=== PATIENT | male | born 2000 | race Caucasian/White ===

== ENCOUNTER 2020-07-06 12:39 | Emergency (ER) | payer OTHER, SELFPAY ==
[2020-07-06 12:41] VITALS: PULSE 66; RESP 14; TEMP 35.9; O2SAT 98; BMI 22.9
[2020-07-06 12:47] VITALS: BP 126/79
--- NOTE | 2020-07-06 12:50 | RAD_ITS ---
STUDY: X-RAY - LEFT FOOT CLINICAL: Male, 20 years old. Injury/Pain TECHNIQUE: 3 view(s) of the foot. COMPARISON: None. FINDINGS: Normal talus, calcaneus, and tarsal bones. Normal visualized subtalar, talonavicular, calcaneocuboid, tarsal and tarsometatarsal articulations. Normal metatarsi. Normal metatarsophalangeal joint of the great toe. Normal tibial and fibular sesamoid bones. Normal interphalangeal joint of the great toe. Normal phalanges of the great toe. Normal second through fifth metatarsophalangeal joints. Normal interphalangeal joints and phalanges of the lesser toes. The soft tissue structures are unremarkable. RAD/Foot min 3 Views IMPRESSION: Normal x-ray examination of the foot. Electronically Signed: Clinton Reynaga MD at 13:17 EDT Tel , Service support ,
--- NOTE | 2020-07-06 12:50 | EDS_ITS ---
HPI History of Present Illness Chief Complaint: Lower Extremity Injury Narrative Narrative: Patient reports that he was playing lacrosse yesterday when he stepped and landed awkwardly. Jamming his left first toe and the ground. Reports he has a throbbing pain at 6 out of 10 currently and 7 out of 10 at worst. Is worsened by walking. Is not taking anything for pain. He denies any numbness or weakness. He denies any other injuries or complaints. [facility] Medical History (Updated 07/06/20 @ 13:[address] Han Sullivan MD) Asthma Home Medications albuterol 1 mcg INHALATION DAILY 07/06/20 [History Last Taken Unknown] ciclesonide [Alvesco] 1 puff INHALATION DAILY 07/06/20 [History Last Taken Unknown] montelukast 10 mg PO DAILY 07/06/20 [History Last Taken Unknown] sertraline 50 mg PO DAILY 07/06/20 [History Last Taken Unknown] Allergy/AdvReac Type Severity Reaction Status Date / Time No Known Allergies Allergy Verified 07/06/20 12:40 Social History Smoking Status: Never smoker ROS ROS ED Constitutional Constitutional ED: Denies chills, fever(s) or sweats Eyes Eyes: Denies change in vision ENT ENT ED: Denies sore throat Cardiovascular Cardiovascular: Denies chest pain Respiratory/Chest Respiratory/Chest: Denies cough, dyspnea or dyspnea on exertion Gastrointestinal Gastrointestinal: Denies abdominal pain, diarrhea, melena, nausea or vomiting Genitourinary Genitourinary ED: Denies dysuria or urinary frequency Musculoskeletal Musculoskeletal: Denies myalgias Integumentary Denies rash Neurologic Neurologic: Denies headache(s), paresthesias or weakness EXAM Physical Exam Const Vital Signs: 07/06/20 12:41 07/06/20 12:47 Temperature 96.7 F L Temperature Source Temporal Pulse Rate 66 Respiratory Rate 14 Blood Pressure 126/79 H Blood Pressure Mean 94 Pulse Ox 98 Oxygen Delivery Method Room Air Positive well nourished and well developed General Appearance ED: well developed HEENT Reports normocephalic and head/scalp atraumatic Eyes PERRL Neck no lymphadenopathy, supple and no JVD General: Negative for tenderness Resp normal respiratory effort and clear to auscultation bilaterally Cardio regular rate, regular rhythm and no murmurs GI normal to inspection, nondistended, normoactive bowel sounds and non-tender GI Narrative: No guarding, rebound, or peritoneal signs. Palpation: soft Back/Spine Back/Spine Narrative: Nontender. Extremity Extremity Narrative: Contusion, soft tissue swelling, and moderate tenderness palpation over the distal portion of his left first metatarsal and first toe. He is a 2+ dorsalis pedis pulse. Normal sensation light touch. General Extremety ED: Negative for edema or tenderness General Extremity: Negative for edema Neuro oriented x3, CN's II-XII intact bilaterally and no sensory deficits noted Sensorium / Orientation: alert Motor Exam: strength 5/5 throughout Psych mental status grossly normal Skin no rashes or lesions noted MDM MDM Radiography X-Ray: Read by ED Physician, Read by Radiologist, Normal, No Fracture and - (Left foot x-ray shows no acute disease.) Diagnostic Testing: Radiology Impression Foot X-Ray 07/06/20 12:50 IMPRESSION: Normal x-ray examination of the foot. Electronically Signed: Clinton Reynaga MD at 13:17 EDT Tel , Service support , Treatment and Re-Evaluation Comments:: Emergency department course: Patient was treated with ibuprofen. He is resting comfortably. Treatment plan: Patient did not want crutches, postop shoe, or a walking boot. He will be discharged instructions follow-up Dr. Machuca in 1 week if not improving. He is instructed on symptomatic care. Ice, elevate, Tylenol and/or ibuprofen for pain. Discharge Plan Triage Chief Complaint: Lower Extremity Injury ED Provider: Han Sullivan Dx/Rx/DC Orders Clinical Impression: Contusion of toe of left foot Instructions: ED Foot Contusion Prescriptions: No Action montelukast 10 mg Tablet 10 mg PO DAILY RF: 0 albuterol 90 mcg/actuation Aerosol 1 mcg INHALATION DAILY RF: 0 sertraline 50 mg Tablet 50 mg PO DAILY RF: 0 Alvesco 160 mcg/actuation Hfa Aerosol Inhaler 1 puff INHALATION DAILY RF: 0 Primary Care Provider: Care Physician,No Primary Referrals: Aaron Machuca MD [NON-STAFF] - 1 Week if not improving Care Physician,No Primary [Primary Care Provider] -
[2020-07-06] MEDS: Ibuprofen 600 MG Tablet PO (13:16)
== END 2020-07-06 13:38 | disposition home or self-care (01) ==
LOC: ED 13:11
PROVIDERS: Emergency Provider Emergency Medicine
DX: S90.122A Contusion of left lesser toe(s) without damage to nail, initial encounter (principal); J45.909 Unspecified asthma, uncomplicated; Z79.51 Long term (current) use of inhaled steroids; Z79.899 Other long term (current) drug therapy; Y93.65 Activity, lacrosse and field hockey
CPT/HCPCS: 73630; 99282

== ENCOUNTER 2020-12-05 22:51 | Emergency (ER) | payer OTHER, SELFPAY ==
[2020-12-05 22:52] VITALS: BP 127/63; PULSE 59; RESP 15; TEMP 36.4; O2SAT 97; BMI 23.6
--- NOTE | 2020-12-05 23:02 | EDS_ITS ---
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 He states that he came to and was very tense. He was not postictal. No loss of bowel or bladder control. He feels back to his normal self now. He notes that he was told he was pale and diaphoretic [facility] Medical History Asthma Home Medications albuterol 1 mcg INHALATION DAILY 07/06/20 [History Last Taken Unknown] ciclesonide [Alvesco] 1 puff INHALATION DAILY 07/06/20 [History Last Taken Unknown] montelukast 10 mg PO DAILY 07/06/20 [History Last Taken Unknown] sertraline 50 mg PO DAILY 07/06/20 [History Last Taken Unknown] Allergy/AdvReac Type Severity Reaction Status Date / Time No Known Allergies Allergy Verified 12/05/20 22:52 Social History (Updated 12/05/20 @ 23:[address] Juan Ramon Morrison DO) current occupational status: student current gender identity: male Smoking Status: Never smoker ROS ROS ED ROS Narrative Fatigue Constitutional Constitutional ED: Denies chills or weight loss Eyes Eyes: Denies change in vision or diplopia ENT ENT ED: Denies ear pain, rhinorrhea or sore throat Cardiovascular Cardiovascular: Denies chest pain, orthopnea, palpitations or racing heartbeat Respiratory/Chest Respiratory/Chest: Denies cough, dyspnea or orthopnea Gastrointestinal Gastrointestinal: Denies abdominal pain, diarrhea, nausea or vomiting Genitourinary Genitourinary ED: Denies dysuria, hematuria or urinary frequency Musculoskeletal Musculoskeletal: Denies arthralgias or myalgias Integumentary Denies abscess or rash Neurologic Neurologic: Denies headache(s) or weakness Psychiatric Psychiatric: Denies anxiety, depression, suicidal ideation or suicidal thoughts Endocrine Endocrinology: Denies polydipsia, polyphagia or polyuria Allergic/Immunologic Allergic/Immunologic ED: Denies mouth swelling, tongue swelling or urticaria EXAM Physical Exam Const Vital Signs: 12/05/20 22:52 Temperature 97.6 F L Temperature Source Temporal Pulse Rate 59 L Respiratory Rate 15 Blood Pressure 127/63 H Blood Pressure Mean 84 Pulse Ox 97 Oxygen Delivery Method Room Air Positive well nourished and well developed General Appearance ED: well developed HEENT Reports normocephalic, head/scalp atraumatic and moist mucous membranes Eyes PERRL and EOMs intact bilaterally Neck no lymphadenopathy, supple and no JVD Resp normal respiratory effort and clear to auscultation bilaterally Cardio regular rate, regular rhythm and no murmurs GI normal to inspection, nondistended, normoactive bowel sounds and non-tender Palpation: soft Back/Spine no CVA tenderness and normal ROM Extremity normal to inspection General Extremety ED: Negative for edema General Extremity: Negative for edema Neuro oriented x3 and CN's II-XII intact bilaterally Sensorium / Orientation: alert Motor Exam: strength 5/5 throughout Psych mental status grossly normal Mood & Affect: Negative for depressed or tearful Skin no rashes or lesions noted and no wounds MDM MDM MDM Narrative Medical decision making narrative: Patient appears to have had a vasovagal response to pain. At this point I believe the patient can be discharged home. Discharge Plan Triage Chief Complaint: Seizure ED Provider: Juan Ramon Morrison Dx/Rx/DC Orders Clinical Impression: Vasovagal syncope Instructions: ED Fainting, Vagal Reaction Prescriptions: No Action montelukast 10 mg Tablet 10 mg PO DAILY RF: 0 albuterol 90 mcg/actuation Aerosol 1 mcg INHALATION DAILY RF: 0 sertraline 50 mg Tablet 50 mg PO DAILY RF: 0 Alvesco 160 mcg/actuation Hfa Aerosol Inhaler 1 puff INHALATION DAILY RF: 0 Primary Care Provider: [facility] Doctor,Out of Referrals: [facility] Doctor,Out of [Primary Care Provider] - As Needed Disposition Disposition: Home, Self Care
[2020-12-05 23:13] VITALS: BP 127/69; PULSE 63; RESP 17
== END 2020-12-05 23:20 | disposition home or self-care (01) ==
LOC: ED 23:18
PROVIDERS: Emergency Provider Emergency Medicine
DX: R55 Syncope and collapse (principal); J45.909 Unspecified asthma, uncomplicated; Z79.51 Long term (current) use of inhaled steroids
CPT/HCPCS: 99282